=== PATIENT | male | born 1985 | race Caucasian/White ===

== ENCOUNTER 2017-07-05 08:35 | Emergency (ER) | payer BC ==
[~2017-07-05] VITALS: Ht 172.7 cm; Wt 75.0 kg
[2017-07-05] MEDS ORDERED: PHENAZOPYRIDINE 200 MG TABLET ONE (08:54)
[2017-07-05] MEDS ORDERED: IBUPROFEN 800 MG TABLET ONE (08:54)
[2017-07-05] MEDS ORDERED: IBUPROFEN 800 MG TABLET PO ONE (09:00)
[2017-07-05] MEDS ORDERED: PHENAZOPYRIDINE 200 MG TABLET PO ONE (09:00)
[2017-07-05 09:08] LABS: BASOPHILS # (AUTO) 0.07 x10^3/uL (0-0.1); BASOPHILS % (AUTO) 1 % (0-1); EOSINOPHILS # (AUTO) 0.07 x10^3/uL (0-0.4); EOSINOPHILS % (AUTO) 1 % (1-7); LYMPHOCYTES % (AUTO) 11 % (22-44); MD NO; MEAN CORPUSCULAR HEMOGLOBIN 30.6 pg (27.5-34.5); MEAN CORPUSCULAR HGB CONC 34.2 g/dL (33.2-36.2); MEAN CORPUSCULAR VOLUME 89.5 fL (81-97); MEAN PLATELET VOLUME 8.5 fL (7.4-10.4); MONOCYTES # (AUTO) 0.42 x10^3/uL (0.2-0.8); MONOCYTES % (AUTO) 3 % (2-9); NEUTROPHILS # (AUTO) 10.25 x10^3/uL (1.8-6.8); NEUTROPHILS % (AUTO) 85 % (42-75); PLATELET COUNT 228 x10^3/uL (130-400); RED BLOOD COUNT 4.69 x10^6/uL (4.38-5.82); RED CELL DISTRIBUTION WIDTH 12.7 % (9.4-14.8)
[2017-07-05 09:18] LABS: ALBUMIN 4.1 g/dL (3.4-5.0); ANION GAP 7 mmol/L (5-15); CALCIUM 8.7 mg/dL (8.5-10.1); CHLORIDE 105 mmol/L (98-107); CREATININE 0.94 mg/dL (0.7-1.3)
[2017-07-05 09:30] LABS: CULTURE INDICATED? YES; MICROSCOPIC INDICATED
[2017-07-05 10:00] VITALS: BP 126/73
== END 2017-07-05 10:24 | disposition home or self-care (01) ==
LOC: ED 09:06
DX: N30.01 Acute cystitis with hematuria (principal)
CPT/HCPCS: 36415; 80048; 81001; 82040; 85025; 87077; 87086; 87186; 99284